=== PATIENT | female | born 1980 | race Caucasian/White ===

== ENCOUNTER 2020-03-23 14:31 | Outpatient (CLI) | payer BC | END 2020-03-23 14:32 | disposition home or self-care (01) | LOC: DTY/OP 14:31 | PROVIDERS: ATTEND Family Medicine | DX: E11.9 Type 2 diabetes mellitus without complications (principal) | CPT/HCPCS: 97802 ==

== ENCOUNTER 2021-10-25 08:41 | Outpatient (CLI) | payer BC | END 2021-10-25 08:42 | disposition home or self-care (01) | LOC: BICRAD 08:41 | PROVIDERS: ATTEND Family Medicine | DX: E11.9 Type 2 diabetes mellitus without complications (principal) | CPT/HCPCS: 36415; 71046; 80053; 80061; 83036; 84443 ==

== ENCOUNTER 2021-11-01 13:56 | Outpatient (CLI) | payer BC ==
[2021-11-01 14:46] LABS: Estimated GFR-MDRD - POC Greater than 90
== END 2021-11-01 13:57 | disposition home or self-care (01) ==
LOC: BICCT 13:56
PROVIDERS: ATTEND Family Medicine
DX: R19.01 Right upper quadrant abdominal swelling, mass and lump (principal)
CPT/HCPCS: 71260; 74160; 82565

== ENCOUNTER 2025-06-13 07:34 | Outpatient (CLI) | payer BC | END 2025-06-13 07:35 | disposition home or self-care (01) | LOC: NM 07:34 | PROVIDERS: ATTEND Family Medicine | DX: K31.84 Gastroparesis (principal) | CPT/HCPCS: 78264; A9541 ==